=== PATIENT | male | born 1995 | race Caucasian/White ===

== ENCOUNTER 2023-11-16 16:38 | Emergency (ER) | payer OTHER ==
[2023-11-16] VITALS (11 sets, daily range): BP systolic 92–129; BP diastolic 50–84
[~2023-11-16] VITALS: Ht 182.9 cm; Wt 72.7 kg
[2023-11-16] MEDS ORDERED: SODIUM CHLORIDE 0.9% 1,000 ML IV ONE ×2 (17:00)
[2023-11-16] MEDS ORDERED: ONDANSETRON HCl 4 MG/2 ML SDV IV ONE (17:00)
[2023-11-16 17:09] LABS: BASO% 0.1 % (0-3); EOS% 1.3 % (0-8); HEMATOCRIT 46.5 % (39.0-50.0); HEMOGLOBIN 15.5 g/dl (14.0-18.0); IMMATURE GRANULOCYTES 0.1 % (0.0-5.0); LYMPH% 1.6 % (15-41); MEAN CELL VOLUME 91.4 fL CALC (80.0-100.0); MEAN CORPUSCULAR HGB 30.5 pG CALC (26.0-32.0); MEAN CORPUSCULAR HGB CONC 33.3 g/dL CAL (32.0-36.0); MONO% 3.8 % (2-13); NEUT# 13.02 thou/uL (1.82-7.42); NEUT% 93.1 % (42-76); RED BLOOD COUNT 5.09 mill/uL (4.70-6.10); RED CELL DISTRI WIDTH 12.5 % (11.5-15.5)
[2023-11-16 17:41] LABS: BILIRUBIN, TOTAL 0.8 mg/dL (0.2-1.3); POTASSIUM 4.2 mmol/l (3.5-5.1); TOTAL PROTEIN 8.5 g/dL (6.3-8.2)
[2023-11-16] MEDS ORDERED: PROMETHAZINE HCL 25 MG/ML AMP IM ONE (18:35)
[2023-11-16] MEDS ORDERED: ONDANSETRON4 MG PO (19:40)
== END 2023-11-16 20:05 | disposition home or self-care (01) | DRG 392 ==
LOC: ED 16:38
PROVIDERS: Family Medicine
DX: R11.2 Nausea with vomiting, unspecified (principal); R19.7 Diarrhea, unspecified; R10.84 Generalized abdominal pain; R07.9 Chest pain, unspecified
CPT/HCPCS: Q9967